=== PATIENT | male | born 1965 | race African-American/Black ===

== ENCOUNTER 2019-07-18 11:46 | Outpatient (CLI) | payer BC, SELFPAY ==
--- NOTE | ~2019-07-18 | XR_ITS ---
XR ribs RT 2V w CXR 2V DATE: 07/18/2019 12:38 INDICATION: Right chest and flank pain with recent deep tissue massage TECHNIQUE: PA and lateral chest. 3 views of the right ribs. COMPARISON: 04/21/2018 right ribs FINDINGS: Old healed posterior right 10th rib fracture deformity. No recent right rib fracture is karishma dent. Normal heart size. No hilar or mediastinal enlargement. Mild atelectasis at the right lung base. No p ulmonary infiltrate or consolidation is noted otherwise. IMPRESSION: Mild atelectasis at the right lung base No recent rib fractures evident Reviewed, dictated and finalized at location B. ENT SERVICE REP
== END 2019-07-18 11:47 | disposition home or self-care (01) ==
PROVIDERS: PCP Internal Medicine; Visit Provider Internal Medicine
DX: R07.81 Pleurodynia (principal); J98.11 Atelectasis
CPT/HCPCS: 71045; 71101

== ENCOUNTER 2019-08-03 21:14 | Emergency (ER) | payer OTHER, BC, SELFPAY ==
--- NOTE | ~2019-08-03 | XR_ITS ---
EXAMINATION: XR hand RT min 3V EXAM DATE: 08/03/2019 22:31 INDICATION: Initial encounter following injury, with pain of the right hand, third MCP. TECHNIQUE: Right hand frontal, lateral and oblique projections obtained and reviewed. There is no pr ior study for comparison. FINDINGS: Slight contour abnormality to the fourth metacarpal neck without discontinuity, probably an old fracture. Please inquire if patient has such history. There is swelling overlying the metacarpal heads. Otherwise unremarkable right hand examination. IMPRESSION: Fourth metacarpal neck contour abnormality could be old fracture but please clinically c orrelate. Reviewed, dictated and finalized at location A. RACTIVE DIGITAL MEDIA SPECIALIST IMPRESSION: Fourth metacarpal neck contour abnormality could be old fracture b ut please clinically correlate.
[2019-08-03 22:03] VITALS: BP 146/98; PULSE 75; RESP 20; TEMP 36.3; O2SAT 99
--- NOTE | 2019-08-03 22:21 | PC.NURSE ---
Patient to radiology.
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
[2019-08-03] MEDS: AMOXICILLIN/CLAVULANATE K 875-125 MG TAB 1 TABLET PO (22:39)
[2019-08-03] MEDS: TETANUS,DIPHTHERIA,AC PERTUSSIS ADULT 0.5 ML (ADACEL) IM (22:41)
[2019-08-03 23:10] VITALS: TEMP 36.3
[2019-08-03 23:20] VITALS: BP 141/83; PULSE 68; RESP 16; TEMP 36.5; O2SAT 98
== END 2019-08-03 23:22 | disposition home or self-care (01) ==
PROVIDERS: Emergency Provider Emergency Medicine; PCP Internal Medicine
DX: S60.511A Abrasion of right hand, initial encounter (principal); N40.1 Benign prostatic hyperplasia with lower urinary tract symptoms; I11.9 Hypertensive heart disease without heart failure; Z23 Encounter for immunization; Y35.91XA Legal intervention, means unspecified, law enforcement official injured, initial encounter
CPT/HCPCS: 73130; 90471; 90715; 99283; A9270

== ENCOUNTER 2021-03-22 09:26 | Outpatient (CLI) | payer BC, SELFPAY ==
--- NOTE | ~2021-03-22 | US_ITS ---
US retroperitoneal comp 03/22/2021 10:16 Procedure: Realtime transabdominal ultrasound of the kidneys and bladder. Indication: Microscopic hematuria Comparison: CT dated 02/29/2016 Findings: Renal echotexture is normal bilaterally without hydronephrosis, contour deforming mass or r enal calculus. There are small renal cysts in the left kidney measuring up to 1 cm. The right kidney measures 11.5 cm and left kidney measures 10.9 cm. Bladder within normal limits. Prostate gland is e nlarged. Impression: 1: Enlarged prostate gland. 2: Left renal cysts measuring up to 1 cm. Reviewed, dictated and finalized at location B. Impression: 1: Enlarged prostate gland. 2: Left renal cysts measuring up to 1 cm.
== END 2021-03-22 09:27 | disposition home or self-care (01) ==
PROVIDERS: PCP Emergency Medicine; Visit Provider Urology
DX: R31.29 Other microscopic hematuria (principal); N28.1 Cyst of kidney, acquired; N40.0 Benign prostatic hyperplasia without lower urinary tract symptoms
CPT/HCPCS: 76770

== ENCOUNTER 2021-10-23 01:11 | Day surgery (SDC) | payer BC, SELFPAY ==
[2021-10-10 09:09] VITALS: BMI 30.8
[2021-10-23 07:13] VITALS: BP 111/80; PULSE 88; RESP 18; TEMP 36.6; O2SAT 99
[2021-10-23] MEDS: LACTATED RINGERS 1,000 ML 150 ML IV CONT (07:28)
--- NOTE | 2021-10-23 08:27 | WPDANESEPPF ---
Anes - Initial Pre Proc Eval Procedure: Operation Date: 10/23/21 08:45 Proposed Procedures p Screening Colonoscopy - Miguel Hernandez MD Date/Time: 10/23/21 08:27 Surgeon: Miguel Hernandez MD Pre Op Diagnosis: hx of colon polyps Patient Data Age: 56 Gender: M Height: 1.83 m Weight: 97.2 kg Last Vital Signs Temp 97.8 F 10/23/21 07:13 Pulse 88 10/23/21 07:13 Resp 18 10/23/21 07:13 BP 111/80 10/23/21 07:13 Pulse Ox 99 10/23/21 07:13 O2 Del Method Room Air 10/23/21 07:13 Allergies Allergy/AdvReac Type Severity Reaction Status Date / Time No Known Allergies Allergy Unknown Verified 10/23/21 07:12 Home Medications Medication Instructions Recorded Confirmed Type tamsulosin 0.4 mg capsule 0.4 mg PO QPM 90 days #90 caps 10/04/20 10/10/21 Rx perindopril erbumine 8 mg tablet 8 mg PO DAILY 90 days #90 tabs 05/27/21 10/10/21 Rx finasteride 5 mg tablet 5 mg PO DAILY #90 tabs 06/07/21 10/10/21 Rx nebivolol 10 mg tablet (Bystolic) 10 mg PO QHS #90 tabs 06/21/21 10/10/21 Rx ergocalciferol (vitamin D2) 1,250 See Rx Instructions .Route 10/21/21 10/23/21 Rx mcg (50,000 unit) capsule .COMPLEX #12 caps hydrochlorothiazide 25 mg tablet 25 mg PO DAILY #90 tabs 10/21/21 10/23/21 Rx losartan 50 mg tablet 50 mg PO DAILY #90 tabs 10/22/21 10/23/21 Rx Patient hx anesthesia problems: none Family hx anesthesia problems: none Results Review: All pre-operative results and documents have been reviewed as part of the pre-operative evaluation. ON LICENSE OF [facility] Past Medical History Medical History (Updated 10/23/21 @ 08:39 by Miguel Hernandez MD) Benign prostatic hyperplasia with lower urinary tract symptoms BPH loc w urin obs/LUTS Colon cancer screening Essential (primary) hypertension Hypertensive heart disease without heart failure Family History Family History Father , 64 MVA (motor vehicle accident) Mother No problems noted. 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 Informed Consent: The patient's anesthetic plan and its attendant risks and benefits were discussed with the patient/family/POA. Questions were solicited and answers provided to the satisfaction of the patient/family/POA.
--- NOTE | 2021-10-23 08:38 | PM.HPGS ---
History of Present Illness History of Present Illness Consent: Risks, benefits, and alternatives have been discussed and questions answered. Patient agrees to proceed with procedure. Chief complaint: hx of colon polyps Narrative: Morales Tirado is a 56 year old male here for screening colonoscopy, last one about 7 years ago. Review of Systems Constitutional: Constitutional: Denies headache(s) and Denies weakness Eyes: Eyes: Denies blurry vision ENT: Reports Normal hearing present, Denies headache(s) and Denies neck pain Cardiovascular: Cardiovascular: Denies chest pain and Denies dyspnea Respiratory: Respiratory: Denies dyspnea Gastrointestinal: Gastrointestinal: Reports no additional gastrointestinal complaints Genitourinary: Genitourinary: Denies dysuria Musculoskeletal: Musculoskeletal: Denies neck pain Integumentary/Breasts: Skin/Breast: Denies dry skin Neurologic: Reports Normal hearing present, Denies headache(s) and Denies weakness Psychiatric: Psychiatric: Denies anxiety Endocrine: Endocrine: Denies change in body appearance Hematologic/Lymphatic: Hematologic/Lymphatic: Denies easy bleeding Allergic/Immunologic: Allergic/Immunologic: Denies urticaria PMFSH Past Medical History Medical History (Updated 10/23/21 @ 08:39 by Miguel Hernandez MD) Benign prostatic hyperplasia with lower urinary tract symptoms BPH loc w urin obs/LUTS Colon cancer screening Essential (primary) hypertension Hypertensive heart disease without heart failure Family History Family History Father , 64 MVA (motor vehicle accident) Mother No problems noted. 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COMPLEX #12 caps hydrochlorothiazide 25 mg tablet 25 mg PO DAILY #90 tabs 10/21/21 10/23/21 Rx losartan 50 mg tablet 50 mg PO DAILY #90 tabs 10/22/21 10/23/21 Rx Allergies Allergy/AdvReac Type Severity Reaction Status Date / Time No Known Allergies Allergy Unknown Verified 10/23/21 07:12 Vital Signs Vital Signs - 24 hr 10/23/21 07:13 Temperature 97.8 F Pulse Rate 88 Respiratory Rate 18 Blood Pressure 111/80 Pulse Oximetry 99 Oxygen Delivery Room Air Exam Const: General: comfortable and no acute distress HENMT: General nose exam: Normal nares present Eyes: General: appearance normal, both eyes and all related structures Neck: Neck: no JVD Resp: Auscultation: clear to auscultation bilaterally Cardio: Rate: regular rate Rhythm: regular rhythm GI: Inspection: non-distended GI Palp: Yes Soft to palpation Skin: General skin exam: normal color Neuro: General: gait normal Speech: normal speech Extrem: General: normal to inspection Psych: Mental Status: mental status grossly normal Assessment and Plan Assessment and plan (1) Colon cancer screening: Code(s): Z12.11 - Encounter for screening for malignant
[2021-10-23 08:58] VITALS: BP 106/80; PULSE 79; RESP 19; O2SAT 98
[2021-10-23 09:08] VITALS: BP 131/79; PULSE 80; RESP 18; O2SAT 99
[2021-10-23 09:18] VITALS: BP 117/75; PULSE 78; RESP 17; O2SAT 99
== END 2021-10-23 09:25 | disposition home or self-care (01) ==
PROVIDERS: PCP Emergency Medicine; Visit Provider Internal Medicine Gastroenterology
PROC: 0DJD8ZZ Inspection of Lower Intestinal Tract, Via Natural or Artificial Opening Endoscopic (ICD-10-PCS; CPT 45378; principal; 2021-10-23 08:45)
DX: Z12.11 Encounter for screening for malignant neoplasm of colon (principal); D12.0 Benign neoplasm of cecum; D12.3 Benign neoplasm of transverse colon; K57.30 Diverticulosis of large intestine without perforation or abscess without bleeding; I11.9 Hypertensive heart disease without heart failure; N40.1 Benign prostatic hyperplasia with lower urinary tract symptoms; K64.8 Other hemorrhoids
CPT/HCPCS: 45385; 88305; J2704; J7120

== ENCOUNTER 2022-09-12 16:44 | Outpatient (CLI) | payer BC, SELFPAY ==
--- NOTE | ~2022-09-12 | US_ITS ---
Thyroid ultrasound. Clinical History: Nontoxic goiter Findings: Real-time sonography of the thyroid gland was performed. The right lobe measures 5.3 x 1.6 x 1.6 cm. The left lobe measures 9.2 x 4.9 x 5.9 cm. The isthmus is 5 mm in AP diameter. There is a 1.2 x 1.1 x 1.3 cm heterogeneous mixed solid and cystic nodule at the right lower pole. There is an 8.2 x 4.2 x 5.8 cm probably solid, nearly isoechoic nodule/mass involving the majority of the left thyroid lobe, with scattered small cystic areas. Impression: 8.2 x 4.2 x 5.8 cm solid left thyroid lobe mass, involving essentially the entire left thyroid lobe. FNA advised to establish a histologic diagnosis. 1.3 cm heterogeneous nodule at the right lower lobe, as detailed above. Annual follow-up ultrasound a dvised for this lesion. Reviewed, dictated and finalized at [facility]. Impression: 8.2 x 4.2 x 5.8 cm solid left thyroid lobe mass, involving essentially the enti re left thyroid lobe. FNA advised to establish a histologic diagnosis. 1.3 cm heterogeneous nodule at the right lower lobe, as detailed above. Annual follow-up ultrasound advised for this lesion.
== END 2022-09-12 16:45 | disposition home or self-care (01) ==
LOC: ANHIMG 16:46
PROVIDERS: PCP Emergency Medicine; Visit Provider Emergency Medicine
DX: E04.9 Nontoxic goiter, unspecified (principal)
CPT/HCPCS: 76536

== ENCOUNTER 2022-11-14 09:22 | Outpatient (CLI) | payer BC, SELFPAY ==
--- NOTE | ~2022-11-14 | US_ITS ---
EXAMINATION: US FNA w image guidance DATE: 11/14/2022 10:30 INDICATION: Thyroid nodule. TECHNIQUE: The procedure and its benefits and risks were discussed with the patient. Risks specifically discusse d included bleeding. The patient verbalized understanding of the risks and agreed to proceed. The nec k was prepped and draped in the usual sterile manner. 1% lidocaine was used for local anesthesia. 6 passes were made with a 25G needle into the lesion under ultrasound guidance. There were no immedia te complications. FINDINGS: Grayscale ultrasound images demonstrate needles advanced into an 8.2 cm nodule in left thyroid lobe f or biopsy. IMPRESSION: 1. Ultrasound-guided fine needle aspiration of a nodule in left thyroid lobe. Reviewed, dictated and finalized at location A.
== END 2022-11-14 09:23 | disposition home or self-care (01) ==
PROVIDERS: PCP Emergency Medicine; Visit Provider Emergency Medicine
DX: E07.9 Disorder of thyroid, unspecified (principal)
CPT/HCPCS: 10005; 88173; 88305

== ENCOUNTER 2023-05-20 16:44 | Outpatient (CLI) | payer BC, SELFPAY ==
--- NOTE | ~2023-05-20 | XR_ITS ---
EXAMINATION: XR_[id number]_CR DATE: 05/20/2023 17:10 INDICATION: Right knee pain. TECHNIQUE: 2 views of right knee were obtained. COMPARISON: None. FINDINGS: Bone alignment is normal. No fracture. There is moderate osteoarthritis of medial and carlos lofemoral compartments and mild osteoarthritis of lateral compartment. There is a small knee joint ef fusion. There are loose bodies in the posterior knee joint. IMPRESSION: 1. Moderate right knee osteoarthritis. 2. Small right knee joint effusion with loose bodies. Reviewed, dictated and finalized at location E. PROCESSING AUDITOR
== END 2023-05-20 16:45 | disposition home or self-care (01) ==
LOC: ANHIMG 16:46
PROVIDERS: PCP Emergency Medicine; Visit Provider Emergency Medicine
DX: M17.11 Unilateral primary osteoarthritis, right knee (principal); M25.461 Effusion, right knee; M23.41 Loose body in knee, right knee
CPT/HCPCS: 73560

== ENCOUNTER 2023-06-29 16:51 | Outpatient (CLI) | payer BC, SELFPAY ==
--- NOTE | ~2023-06-29 | MR_ITS ---
EXAMINATION: MR knee RT wo con DATE: 06/29/2023 17:35 INDICATION: M25.561 - Pain in right knee TECHNIQUE: Magnetic resonance imaging (MRI) of the right knee was performed without intravenous contr ast. Sequences included axial PD-weighted FS FSE, coronal PD-weighted FSE and PD-weighted FS FSE, sag ittal PD-weighted FSE, and sagittal T2-weighted FS FSE. COMPARISON: X-ray right knee 05/20/2023 FINDINGS: Medial compartment: Apical tear of the posterior horn. Decreased meniscal volume. Degenerative meniscal changes. Mild men iscal extrusion. Diffuse full-thickness cartilage loss. 5 mm subchondral cyst or old osteochondral de fect on the weightbearing surface of the MFC. Moderate osteophytosis. Lateral compartment: Mild diffuse cartilage thinning and osteophytosis. Intact meniscus.. Patellofemoral compartment: Full-thickness cartilage loss on the inferior aspect of the medial facet. Moderate osteophytosis. Ret inacula intact. Quadriceps and patellar enthesopathy. Ligaments and tendons: The ACL, PCL, MCL, and LCL are intact. Remaining flexor and extensor tendons are intact. Fluid: Moderate volume joint fluid. Multiple loose bodies measuring up to 11 mm in the posterior joint reces s. 6 mm loose body in the intercondylar space. Osseous/other: No suspicious focal or diffuse marrow signal. IMPRESSION: Apical tear of the posterior horn, medial meniscus, in a background of significant meniscal degenerat victoriano change. Tricompartmental osteoarthritis, severe in the medial compartment. Multiple loose joint bodies. Moderate right knee joint effusion. Reviewed, dictated and finalized at location K. TESTER IMPRESSION: Apical tear of the posterior horn, medial meniscus, in a background of signific ant meniscal degenerative change. Tricompartmental osteoarthritis, severe in the medial compartment. Multiple loose joint bodies. Moderate right knee joint effusion.
== END 2023-06-29 16:52 | disposition home or self-care (01) ==
LOC: ANHIMG 16:52
PROVIDERS: PCP Emergency Medicine; Visit Provider Emergency Medicine
DX: M23.41 Loose body in knee, right knee (principal); M25.461 Effusion, right knee; M17.11 Unilateral primary osteoarthritis, right knee; S83.241A Other tear of medial meniscus, current injury, right knee, initial encounter; X58.XXXA Exposure to other specified factors, initial encounter
CPT/HCPCS: 73721

== ENCOUNTER 2024-01-30 07:20 | Outpatient (CLI) | payer BC, SELFPAY ==
--- NOTE | 2024-01-30 07:28 | ECG_ITS ---
Test Date: 2024-01-30 07:40:20 Measurements Intervals [place] Rate: 70 P: 61 PA: 190 QRS: 43 QRSD: 97 T: 32 QT: 384 QTc: 415 Interpretive Statements SINUS RHYTHM No previous ECG available for comparison Electronically Signed On 01-30-2024 14:45:09 CDT by Fco Granger M.D.
== END 2024-01-30 07:21 | disposition home or self-care (01) ==
LOC: ANHIMG 07:21 → ANHCARD 07:22
PROVIDERS: PCP Emergency Medicine; Visit Provider Emergency Medicine
DX: Z01.810 Encounter for preprocedural cardiovascular examination (principal); R00.2 Palpitations; M17.11 Unilateral primary osteoarthritis, right knee
CPT/HCPCS: 93005

== ENCOUNTER 2024-03-18 17:39 | Outpatient (CLI) | payer BC, SELFPAY ==
--- NOTE | ~2024-03-18 | XR_ITS ---
XR_CERV2-3V_CR Ordering provider: Renny Conway MD History: . M54.2 - Cervicalgia . Comparison: None. FINDINGS: VERTEBRAL BODIES: Normal height and alignment. No visible fracture or subluxation. The dens is intact . Degenerative changes of the spine. DISK SPACES: Narrowing of the disc C4-C5 and C6-C7. Multilevel facet joint disease. Multilevel uncove rtebral joint osteoarthritic changes. PARASPINOUS SOFT TISSUES: No prevertebral soft tissue swelling. IMPRESSION: No acute osseous abnormality cervical spine. Multilevel degenerative disc, facet joint disease and uncovertebral joint osteoarthritic changes. Reviewed, dictated and finalized at location A. IMPRESSION: No acute osseous abnormality cervical spine. Multilevel degenerative disc, facet joint disease and uncovertebral joint osteo arthritic changes.
== END 2024-03-18 17:40 | disposition home or self-care (01) ==
PROVIDERS: PCP Emergency Medicine; Visit Provider Emergency Medicine
DX: M50.321 Other cervical disc degeneration at C4-C5 level (principal); M50.323 Other cervical disc degeneration at C6-C7 level; M47.892 Other spondylosis, cervical region
CPT/HCPCS: 72040

== ENCOUNTER 2025-02-06 13:46 | Outpatient (CLI) | payer BC, SELFPAY ==
--- OUTSIDE RECORDS SUMMARY | 2015-10-22 12:05 | XMS_ITS | Continuity of Care Document ---
Author Organization [facility] Address [address] [place] [address] Phone Care Team Providers Care Carrier Driver Name Role Phone Bridger Terrazas MD Unavailable Unavailable Procedures Procedure Date OFFICE/OUTPATIENT VISIT EST Advance Directives Directive Yes / No Effective Date File Name No Information Encounters Encounter Description Practice Location Reason(s) For Visit Diagnoses Date Provider Providers Copied on Encounter OFFICE/OUTPA TIENT VISIT EST [facility], [address], [facility], [phone] [facility] [place] Primary osteoarthritis of right knee 6 Nini Sparks. [address], [place], [place], [id number] . tel: [phone] [facility], [address], [place], [place], [facility], tel:[phone] [facility] Primary osteoarthritis of right kneeAcute pain of right knee 6 Silvestre Mansfield. [address], [place], [place], [id number] . tel: [phone] Family History Family Member Type Diagnosis Age At Onset No Information Payers Payer name Insurance type Covered constitution party ID Authoriza tikedar(s) Blue Access PPO E2 OT [id number] Social History Type Description Quantity Date Captured Comments Sex Male Smoking Status No Information Chief Complaint And Reason For Visit No Information Reason For Referral Reason For Referral No Information Plan Of Treatment Date Type Action Status Referral Ordered: RADEX ABIMAELE COMPL 4/MORE VIEWS RT ordered History Of Present Illness Encounter Date Complaint History Of Prese nt Illness No Information Functional Status Date Functional Assessmen t No Information Instructions Date Instruction Additional Infor mation No Information Assessments Type Assessment Date assessment Primary osteoarthritis of right knee Patient Care Teams Name Effective Dates (start - stop) Status Members No Information
--- OUTSIDE RECORDS SUMMARY | 2025-02-06 13:49 | XMS_ITS | Clinical Summary ---
Author Organization [facility] Address [address] [place] [address] Care Team Providers Care Log Getter Name Role Phone Renny Conway MD Primary Care Provider Source Comments [facility],non-owned Affiliates and Associated Physician Practices is amultiple site organization consisting of ambulatory clinics and hospital sitesin [place], [place], [place] and [place]. This disclosure is being madepursuant to the Care Everywhere program and may not contain all information available regarding this patient. Last updated 18.[facility] Allergies No known active allergies Medications * Be aware that medications may not be up to date on this document. Alwaysverify current medications with the patient. AMLODIPINE BESYLATE PO Active FINASTERIDE PO Activ e TAMSULOSIN HCL PO Active erythromycin (ROMYCIN) 5 MG/GM ophthalmic ointmentIndicat ions:Laurier eye disease of left eye Instill into left eye 3 times daily Apply 1/2 inch ribbon to the inner aspect of the lower lid 1 packet 11/03/2018 Active Active Problems No known active problems Social History Tobacco Use Types Packs/Day Years Used Date Smoking Tobacco: Never Smokeless Tobacco: Never Sex and Gender Information Value Date Recorded Sex Assigned at Not on file Legal Sex Male 5:40 PM CDT Gender Identity Not on file Sexual Orientation Not on file Last Filed Vital Signs Vital Sign Reading Time Taken Comments Blood Pressure 146/90 11/03/2018 5:56 PM CDT Pulse 97 11/03/2018 5:56 PM CDT Temperature 37 C (98.6 F) 11/03/2018 5:56 PM CDT Respiratory Rate 16 11/03/2018 5:56 PM CDT Oxygen Saturation 94% 11/03/2018 5:56 PM CDT Inhaled Oxygen Concentration - - Weight 99.8 kg (220 lb) 11/03/2018 5:56 PM CDT Height 182.9 cm (6') 11/03/2018 5:56 PM CDT Body Mass Index 29.84 11/03/2018 5:56 PM CDT Plan of Treatment Health Maintenance Due Date Last Done Comments COLOGUARD (AGES 45-75) - COL ON CA SCREENING 1964 COLON MONITORING 1964 COLONOSCOPY - COLON CA SCREENING 1964 CT COLONOGRAPHY - COLON CA SCREENING 1964 Colorectal Cancer Screening 1964 FIT - COLON CA SCREENING 1964 FLEX SIG - COLON CA SCREENING 1964 LIPID TESTING 1964 HIV SCREENING 1979 HEPATITIS C SCREENING 07/05/1982 DTAP/TDAP/TD VACCINES (1 - Tdap) 1983 PNEUMOCOCCAL VACCINE 50+ (1 of 1 - PCV) 2014 ZOSTER VACCINE (1 of 2) 2014 SCREENING FOR DIABETES 11/03/2018 COVID-19 VACCINE (1 - 2023-2 5 season) 2024 DEPRESSION SCREENING 06/01/2024 INFLUENZA VACCINE (#1) 2025 Respiratory Syncytial Virus (RSV) Vaccine Pt: or over 60 yrs (1 - 1-dose 75+ series) 2039 HEPATITIS B VACCINE Aged Out No longe r eligible based on patient's age to complete this topic HIB VACCINE Aged Out No longer eligi ble based on patient's age to complete this topic HPV VACCINE Aged Out No longer eligi ble based on patient's age to complete this topic MENINGOCOCCAL (Group B) VACC INE SHARED DECISION-MAKING Aged Out No longer eligibl e based on patient's age to complete this topic MENINGOCOCCAL GROUPS A/C/Y/W VACCINE Aged Out No longer eligible b ased on patient[place] [id number] [facility] Address: [address] [id number] Care Teams Log Getter Relationship Specialty Start Date End Date Renny Conway MD [address] [place] [address] [id number] PCP - General 10/24/21
--- OUTSIDE RECORDS SUMMARY | 2025-02-06 13:49 | XMS_ITS | Clinical Summary ---
Author Organization [facility] Address [address] [place] [id number] Care Team Providers Care Maitre D' Name Role Phone Unavailable Primary Care Provider Unavailabl e Social History Tobacco Use Types Packs/Day Years Used Date Smoking Tobacco: Never Assessed Sex and Gender Information Value Date Recorded Sex Assigned at Not on file Legal Sex Male 7:36 PM CDT Gender Identity Not on file Sexual Orientation Not on file Plan of Treatment Health Maintenance Due Date Last Done Comments Colorectal Cancer Screening Colonoscopy (10 Years) 1964 Annual Physical 1967 Hepatitis C 1982 DTaP, Tdap and Td Vaccines ( 1 - Tdap) 1983 Pneumococcal Vaccine: 50+ Ye ars (1 of 1 - PCV) 2014 Zoster Vaccines (1 of 2) 2014 COVID-19 Vaccine ( - 2023-2 5 season) 2025 RSV Immunization or 60+ Years (1 - 1-dose 75+ series) 2039 Meningococcal B Vaccine Aged Out No l onger eligible based on patient's age to complete this topic Meningococcal Vaccine Aged Out No bernadette flor eligible based on patient's age to complete this topic RSV Immunizations Under 20 Months Aged Out No longer eligible based on patient's age to complete this topic
--- OUTSIDE RECORDS SUMMARY | 2025-02-06 13:49 | XMS_ITS | Clinical Summary ---
Author Organization [facility] [address] Address [address] [place] [address] Care Team Providers Care Wrapper Off Name Role Phone Franco Ku MD, Fidel Banerjee Primary Care Provider Allergies No known active allergies Social History Tobacco Use Types Packs/Day Years Used Date Smoking Tobacco: Never Assessed Personal Safety Answer Date Recorded Getting School Help Needed Not on file 08/15 Sex and Gender Information Value Date Recorded Sex Assigned at Not on file Legal Sex Male 3:24 PM [employer] Gender Identity Not on file Sexual Orientation Not on file Plan of Treatment Not on file Insurance [employer] Care Teams Wrapper Off Relationship Specialty Start Date End Date Fidel Gamez Jr., MD [address] [place] [id number] PCP - General Geriatric Medicine 05/07/18
== END 2025-02-06 13:47 | disposition home or self-care (01) ==
LOC: ANHAUDIO 13:47
PROVIDERS: PCP Emergency Medicine; Visit Provider Otolaryngology
DX: H90.A22 Sensorineural hearing loss, unilateral, left ear, with restricted hearing on the contralateral side (principal)
CPT/HCPCS: 92557; 92567